=== PATIENT | female | born 1950 | race Caucasian/White ===

== ENCOUNTER 2021-10-15 15:32 | Observation (INO) | payer MEDICARE ==
[2021-10-15] MEDS ORDERED: RX INFO: IV CONTRAST WAS GIVEN 1 EACH MISC MISCELLANE PRN (16:02)
[2021-10-15] MEDS ORDERED: MORPHINE SULFATE 2 MG/ML SYRINGE IV STA (16:02)
[2021-10-15] MEDS ORDERED: SODIUM CHLORIDE 0.9% 1,000 ML IV ONE (16:02)
--- NOTE | 2021-10-15 16:22 | ED ---
General Adult HPI - General Chief complaint: Fall Stated complaint: Fall Time Seen by Provider: 10/15/21 15:48 Source: EMS, RN notes reviewed, old records reviewed Mode of arrival: EMS Limitations: altered mental status - History of Present Illness Initial comments: Patient is a 71-year-old female with past medical history remarkable for Parkinson's disease, dementia, hypertension, possible A. fib but not on anticoagulation, heart failure, diabetes, multiple falls who presents emergency Department following a fall that was unwitnessed at her care home. Patient presents from [facility] on [facility] following an unwitnessed fall. Is unknown how long she was down for. She is a poor historian. She denies any pain at this time. Per EMS, as well as per her nursing facility, she is at her current mental baseline. She is alert and oriented times one to 2. Seems generally confused. Denies any acute complaints at this time. History is unreliable at this time from the patient. Per EMS, vital signs are stable, and she is not complaining of any pain. According to records, she has no history of taking blood thinners currently. - Related Data Home Medications Medication Instructions Recorded Confirmed ALPRAZolam [Xanax] 0.25 mg PO BID PRN 10/15/21 10/15/21 ALPRAZolam [Xanax] 0.25 mg PO TID@0900,1300,209910/15/21 10/15/21 Acetaminophen [Tylenol] 650 mg PO Q4H PRN 10/15/21 10/15/21 Ascorbic Acid [Vitamin C] 500 mg PO DAILY@89910/15/21 10/15/21 Aspirin EC [Ecotrin Low Dose] 81 mg PO DAILY@89910/15/21 10/15/21 Atorvastatin Calcium [Lipitor] 20 mg PO HS@209910/15/21 10/15/21 Brimonidine Tartrate [Alphagan P 1 drop BOTH EYES BID@0900,209910/15/21 10/15/21 0.2% Ophth Soln] Carbidopa-Levodopa 25-100 mg 1 tab PO TID@0600,1400,2200 10/15/21 10/15/21 [Sinemet 25-100] Cholecalciferol [Vitamin D3 (25 50 mcg PO DAILY@0900 10/15/21 10/15/21 Mcg = 1000 Iu)] Escitalopram [Lexapro] 5 mg PO HS@209910/15/21 10/15/21 Lactose-Reduced Food [Ensure Plus] 1 can PO BID@0900,209910/15/21 10/15/21 Latanoprost/Pf [Latanoprost 0.005% 1 drop BOTH EYES HS@209910/15/21 10/15/21 Eye Drop] Linagliptin [Tradjenta] 5 mg PO DAILY@89910/15/21 10/15/21 Nitroglycerin Sl Tabs [Nitrostat] 0.4 mg SL Q5M PRN 10/15/21 10/15/21 Pantoprazole Sodium [Protonix] 40 mg PO BID@0600,209910/15/21 10/15/21 QUEtiapine [SEROquel] 25 mg PO HS@209910/15/21 10/15/21 Sacubitril/Valsartan [Entresto 24 1 tab PO BID@09,2099 PRN 10/15/21 10/15/21 mg-26 mg Tablet] Sotalol [Betapace] 80 mg PO BID@0900,209910/15/21 10/15/21 Zinc 50 mg PO DAILY@89910/15/21 10/15/21 Allergies Allergy/AdvReac Type Severity Reaction Status Date / Time No Known Allergies Allergy Verified 10/15/21 17:20 Review of Systems ROS Statement: Those systems with pertinent positive or pertinent negative responses have been documented in the HPI. Unable to obtain secondary to patient's current clinical status. ROS Other: All systems not noted in ROS Statement are negative. Past Medical History Past Medical History: No Reported History History of Any Multi-Drug Resistant Organisms: None Reported Past Surgical History: No Surgical Hx Reported Past Psychological History: No Psychological Hx Reported Smoking Status: Unknown if ever smoked Past Alcohol Use History: None Reported Past Drug Use History: None Reported General Exam - General Exam Comments Initial Comments: General: Appears in no acute distress. Patient does have tremors with a history of Parkinson's disease. HEAD: Normal with no signs of head trauma. No Step-offs or deformities. Negative piedra sign. Negative raccoon eyes. EYES: PERRLA, EOMI, conjunctiva normal, no discharge. Pupils 3 mm and equal bilaterally. ENT: Hearing grossly intact, normal oropharynx. RESPIRATORY: Clear breath sounds bilaterally. No wheezes, rales, or rhonchi. C/V: Regular rate and rhythm. S1 and S2 auscultated. Peripheral pulses are 2+ intact. Patient has approximately 1+ pitting edema to the bilateral ankles. ABD: Abd is soft, nondistended, nontender. EXT: Moving all 4 extremities. Mild midline cervical, thoracic, lumbar spine tenderness to palpation. Pelvis is stable. some tenderness over the lateral proximal femur on left. Mild tenderness over bilateral ribs on back. SKIN: Patient does have chronic venous sores over the bilateral lower extremities. NEURO: Alert and oriented times one to 2 which appears to be her baseline. Moving all 4 extremity is. Her neurological exam is difficult to complete secondary to her chronic dementia. No obvious deficits at this time. Limitations: altered mental status Course Vital Signs 10/15/21 10/15/21 15:45 18:09 Temperature 97.6 F Pulse Rate 83 Respiratory 20 18 Rate Blood Pressure 118/89 145/80 O2 Sat by Pulse 97 Oximetry Medical Decision Making - Medical Decision Making Based on the patient's presentation and physical exam, she patient had an unwitnessed fall, of unknown etiology. Uncertain if it was a syncopal episode. Patient is a poor historian and unable to provide more information regarding the event. She is complaining of nonspecific rib pain on exam, left femur pain, but overall is a poor historian. We will obtain CT imaging patient's chest and spine as well as brain and C-spine. We will obtain an x-ray of the left hip, left femur. She will receive a 1 L fluid bolus as well as IV morphine for pain. Broad laboratory study workup will be obtained to rule out the possibility of infection, as well as cardiopulmonary rule out. There was a delay in obtaining laboratory studies, as well as imaging as the patient became agitated secondary to her left hip pain. Attempts were made to obtain CT imaging of the brain immediately, however she would not hold still secondary to left hip pain. IV access was lost. Lab studies were then hemolyzed. Eventually a new IV was placed, and we were able to provide her with a dose of Ativan and Haldol which improved her agitation. Imaging will be obtained at this time. EKG was obtained and revealed an atrial paced rhythm with no obvious ischemic changes.Laboratory studies were remarkable for mild leukocytosis of 13. Magnesium was 1.3 which was replenished. CPK was mildly elevated to 269 patient is given a fluid bolus. Troponin is negative. Urinalysis is remarkable for UTI. Covid is negative. Patient's imaging revealed no acute fracture or subluxation of the pelvis, femur. Chest x-ray was unremarkable. CT imaging was unremarkable for acute injury. No acute intracranial process. No injuries from the fall were found on imaging. On reevaluation, patient is appearing anxious, however she is moving all 4 extremities without difficulty. Mental status is unchanged. She does not seem to have any tenderness to palpation over the left hip at this time or the back. Exam remains unremarkable at this time. I would like to admit her for her UTI. Pain over the posterior ribs and spine seem improved, at this time. I would like to admitted to the hospital for her UTI. I spoke with the admitting team, VALERY ALVARADO she was in agreement with this plan. Patient was admitted under Dr. Rutherford in stable condition. - Lab Data Result diagrams: 10/15/21 17:45 10/15/21 17:45 Lab Results 10/15/21 10/15/21 10/15/21 Range/Units 16:25 16:25 17:45 WBC 13.1 H (3.8-10.6) k/uL RBC 4.66 (3.80-5.40) m/uL Hgb 11.0 L (11.4-16.0) gm/dL Hct 36.3 (34.0-46.0) % MCV 77.8 L (80.0-100.0) fL MCH 23.5 L (25.0-35.0) pg MCHC 30.2 L (31.0-37.0) g/dL RDW 17.4 H (11.5-15.5) % Plt Count 364 (150-450) k/uL MPV 8.7 Neutrophils % 77 % Lymphocytes % 13 % Monocytes % 6 % Eosinophils % 2 % Basophils % 1 % Neutrophils # 10.1 H (1.3-7.7) k/uL Lymphocytes # 1.7 (1.0-4.8) k/uL Monocytes # 0.8 (0-1.0) k/uL Eosinophils # 0.2 (0-0.7) k/uL Basophils # 0.1 (0-0.2) k/uL Hypochromasia Marked Anisocytosis Slight Microcytosis Slight PT (9.0-12.0) sec INR (<1.2) APTT (22.0-30.0) sec Sodium (137-145) mmol/L Potassium (3.5-5.1) mmol/L Chloride (98-107) mmol/L Carbon Dioxide (22-30) mmol/L Anion Gap mmol/L BUN (7-17) mg/dL Creatinine (0.52-1.04) mg/dL Est GFR (CKD-EPI)AfAm (>60 ml/min/1.73 sqM) Est GFR (CKD-EPI)NonAf (>60 ml/min/1.73 sqM) Glucose (74-99) mg/dL Plasma Lactic Acid Tommie (0.7-2.0) mmol/L Calcium (8.4-10.2) mg/dL Magnesium (1.6-2.3) mg/dL Total Bilirubin (0.2-1.3) mg/dL AST (14-36) U/L ALT (4-34) U/L Alkaline Phosphatase (38-126) U/L Creatine Kinase (30-135) U/L Troponin I (0.000-0.034) ng/mL Total Protein (6.3-8.2) g/dL Albumin (3.5-5.0) g/dL Amylase (30-110) U/L Lipase (23-300) U/L Urine Color Yellow Urine Appearance Cloudy H (Clear) Urine pH 6.0 (5.0-8.0) Ur Specific [place] 1.025 (1.001-1.035) Urine Protein Trace H (Negative) Urine Glucose (UA) Negative (Negative) Urine Ketones Negative (Negative) Urine Blood Negative (Negative) Urine Nitrite Negative (Negative) Urine Bilirubin Negative (Negative) Urine Urobilinogen <2.0 (<2.0) mg/dL Ur Leukocyte Esterase Large H (Negative) Urine RBC 5 (0-5) /hpf Urine WBC 111 H (0-5) /hpf Urine WBC Clumps Few H (None) /hpf Ur Squamous Epith Cells 7 H (0-4) /hpf Urine Bacteria Few H (None) /hpf Urine Mucus Rare H (None) /hpf Urine Yeast (Budding) Occasional H (None) /hpf Coronavirus (PCR) Not Detected (Not Detectd) 10/15/21 10/15/21 10/15/21 Range/Units 17:45 17:45 17:45 WBC (3.8-10.6) k/uL RBC (3.80-5.40) m/uL Hgb (11.4-16.0) gm/dL Hct (34.0-46.0) % MCV (80.0-100.0) fL MCH (25.0-35.0) pg MCHC (31.0-37.0) g/dL RDW (11.5-15.5) % Plt Count (150-450) k/uL MPV Neutrophils % % Lymphocytes % % Monocytes % % Eosinophils % % Basophils % % Neutrophils # (1.3-7.7) k/uL Lymphocytes # (1.0-4.8) k/uL Monocytes # (0-1.0) k/uL Eosinophils # (0-0.7) k/uL Basophils # (0-0.2) k/uL Hypochromasia Anisocytosis Microcytosis PT (9.0-12.0) sec INR (<1.2) APTT (22.0-30.0) sec Sodium 141 (137-145) mmol/L Potassium 4.4 (3.5-5.1) mmol/L Chloride 110 H (98-107) mmol/L Carbon Dioxide 22 (22-30) mmol/L Anion Gap 9 mmol/L BUN 20 H (7-17) mg/dL Creatinine 0.96 (0.52-1.04) mg/dL Est GFR (CKD-EPI)AfAm 68 (>60 ml/min/1.73 sqM) Est GFR (CKD-EPI)NonAf 59 (>60 ml/min/1.73 sqM) Glucose 122 H (74-99) mg/dL Plasma Lactic Acid Tommie 1.3 (0.7-2.0) mmol/L Calcium 9.5 (8.4-10.2) mg/dL Magnesium 1.3 L (1.6-2.3) mg/dL Total Bilirubin 1.1 (0.2-1.3) mg/dL AST 33 (14-36) U/L ALT 18 (4-34) U/L Alkaline Phosphatase 71 (38-126) U/L Creatine Kinase 269 H (30-135) U/L Troponin I <0.012 (0.000-0.034) ng/mL Total Protein 6.2 L (6.3-8.2) g/dL Albumin 3.3 L (3.5-5.0) g/dL Amylase 55 (30-110) U/L Lipase 208 (23-300) U/L Urine Color Urine Appearance (Clear) Urine pH (5.0-8.0) Ur Specific [place] (1.001-1.035) Urine Protein (Negative) Urine Glucose (UA) (Negative) Urine Ketones (Negative) Urine Blood (Negative) Urine Nitrite (Negative) Urine Bilirubin (Negative) Urine Urobilinogen (<2.0) mg/dL Ur Leukocyte Esterase (Negative) Urine RBC (0-5) /hpf Urine WBC (0-5) /hpf Urine WBC Clumps (None) /hpf Ur Squamous Epith Cells (0-4) /hpf Urine Bacteria (None) /hpf Urine Mucus (None) /hpf Urine Yeast (Budding) (None) /hpf Coronavirus (PCR) (Not Detectd) 10/15/21 Range/Units 17:45 WBC (3.8-10.6) k/uL RBC (3.80-5.40) m/uL Hgb (11.4-16.0) gm/dL Hct (34.0-46.0) % MCV (80.0-100.0) fL MCH (25.0-35.0) pg MCHC (31.0-37.0) g/dL RDW (11.5-15.5) % Plt Count (150-450) k/uL MPV Neutrophils % % Lymphocytes % % Monocytes % % Eosinophils % % Basophils % % Neutrophils # (1.3-7.7) k/uL Lymphocytes # (1.0-4.8) k/uL Monocytes # (0-1.0) k/uL Eosinophils # (0-0.7) k/uL Basophils # (0-0.2) k/uL Hypochromasia Anisocytosis Microcytosis PT 10.7 (9.0-12.0) sec INR 1.0 (<1.2) APTT 21.5 L (22.0-30.0) sec Sodium (137-145) mmol/L Potassium (3.5-5.1) mmol/L Chloride (98-107) mmol/L Carbon Dioxide (22-30) mmol/L Anion Gap mmol/L BUN (7-17) mg/dL Creatinine (0.52-1.04) mg/dL Est GFR (CKD-EPI)AfAm (>60 ml/min/1.73 sqM) Est GFR (CKD-EPI)NonAf (>60 ml/min/1.73 sqM) Glucose (74-99) mg/dL Plasma Lactic Acid Tommie (0.7-2.0) mmol/L Calcium (8.4-10.2) mg/dL Magnesium (1.6-2.3) mg/dL Total Bilirubin (0.2-1.3) mg/dL AST (14-36) U/L ALT (4-34) U/L Alkaline Phosphatase (38-126) U/L Creatine Kinase (30-135) U/L Troponin I (0.000-0.034) ng/mL Total Protein (6.3-8.2) g/dL Albumin (3.5-5.0) g/dL Amylase (30-110) U/L Lipase (23-300) U/L Urine Color Urine Appearance (Clear) Urine pH (5.0-8.0) Ur Specific [place] (1.001-1.035) Urine Protein (Negative) Urine Glucose (UA) (Negative) Urine Ketones (Negative) Urine Blood (Negative) Urine Nitrite (Negative) Urine Bilirubin (Negative) Urine Urobilinogen (<2.0) mg/dL Ur Leukocyte Esterase (Negative) Urine RBC (0-5) /hpf Urine WBC (0-5) /hpf Urine WBC Clumps (None) /hpf Ur Squamous Epith Cells (0-4) /hpf Urine Bacteria (None) /hpf Urine Mucus (None) /hpf Urine Yeast (Budding) (None) /hpf Coronavirus (PCR) (Not Detectd) - EKG Data -: EKG Interpreted by Me EKG Comments: 12-lead Electrocardiogram Interpretation Note EKG was reviewed and interpreted by myself. 12-lead ECG performed at 1725 is interpreted by me as revealing atrial paced rhythm at a rate of 106 beats per minute. [place] is normal. [place] interval is 182 ms, QRS duration is 90 ms, QTc is 407 ms.. There were no ST or T wave abnormalities to suggest myocardial ischemia or injury. R wave progression across the precordium was satisfactory. By my interpretation this EKG is non-diagnostic for acute ischemia. Disposition Clinical Impression: Fall, UTI (urinary tract infection), Parkinsons, Dementia Disposition: ADMITTED IP TO THIS HOSP Condition: Stable Referrals: Nonstaff,Physician [REFERRING] - 1-2 days
[2021-10-15] MEDS ORDERED: LORazepam 2 MG/ML INJ IV STA (16:57)
[2021-10-15 17:56] LABS: Anisocytosis Slight; Basophils # (A) 0.1 k/uL (0-0.2); Basophils % (A) 1 %; Eosinophils # (A) 0.2 k/uL (0-0.7); Eosinophils % (A) 2 %; HCT 36.3 % (34.0-46.0); Hypochromasia Marked; Lymphocytes # (A) 1.7 k/uL (1.0-4.8); Lymphocytes % (A) 13 %; MCH 23.5 pg (25.0-35.0); MCHC 30.2 g/dL (31.0-37.0); MCV 77.8 fL (80.0-100.0); Mean Platelet Volume 8.7; Microcytosis Slight; Monocytes # (A) 0.8 k/uL (0-1.0); Monocytes % (A) 6 %; Neutrophils # (A) 10.1 k/uL (1.3-7.7); Neutrophils % (A) 77 %; Platelet Count 364 k/uL (150-450); RBC 4.66 m/uL (3.80-5.40); RDW 17.4 % (11.5-15.5); WBC 13.1 k/uL (3.8-10.6)
[2021-10-15] MEDS ORDERED: HALOPERIDOL LACTATE 5 MG/ML 1 ML VIAL IVP STA (17:59)
[2021-10-15 18:07] LABS: Albumin 3.3 g/dL (3.5-5.0); Calcium 9.5 mg/dL (8.4-10.2); Magnesium 1.3 mg/dL (1.6-2.3); Potassium 4.4 mmol/L (3.5-5.1); Total Bilirubin 1.1 mg/dL (0.2-1.3); Total Protein 6.2 g/dL (6.3-8.2)
[2021-10-15 18:11] LABS: Partial Thromboplastin Time 21.5 sec (22.0-30.0); Prothrombin Time 10.7 sec (9.0-12.0)
[2021-10-15] MEDS ORDERED: MAGNESIUM SULFATE-D5W PMX 1 GM in DEXTROSE/WATER 1 100ML.BAG IVPB ONE (18:30)
[2021-10-15 18:36] LABS: Appearance,Urine Cloudy (Clear); Bacteria,Urine Few /hpf; Bilirubin,Urine Negative (Negative); Blood,Urine Negative (Negative); Budding Yeast,Urine Occasional /hpf; Color,Urine Yellow; Glucose,Urine (UA) Negative (Negative); Ketones,Urine Negative (Negative); Leukocyte Esterase,Urine Large (Negative); Mucus,Urine Rare /hpf; Nitrite,Urine Negative (Negative); Protein,Urine Trace (Negative); RBC,Urine 5 /hpf (0-5); Specific Gravity,Urine 1.025 (1.001-1.035); Squamous Epithelial Cell,Urine 7 /hpf (0-4); Urobilinogen,Urine <2.0 mg/dL (<2.0); WBC,Urine 111 /hpf (0-5)
--- NOTE | 2021-10-15 19:07 | XR ---
EXAMINATION TYPE: XR femur LT DATE OF EXAM: 10/15/2021 COMPARISON: NONE HISTORY: Fall. Pain TECHNIQUE: 4 views FINDINGS: I see no fracture nor dislocation. Joint spaces are fairly normal. Hip joint and knee joint appear intact. There is small knee joint effusion. IMPRESSION: No acute abnormality of the left femur. Small knee joint effusion. No fracture.
[2021-10-15] MEDS ORDERED: cefTRIAXone IN SWFI 1,000 MG/10 ML SYRINGE IVP STA (19:08)
--- NOTE | 2021-10-15 19:08 | XR ---
EXAMINATION TYPE: XR pelvis AP view DATE OF EXAM: 10/15/2021 COMPARISON: NONE HISTORY: Fall. Pain TECHNIQUE: Single view FINDINGS: Pelvic ring is intact. Proximal femurs are intact. Sacroiliac joints are intact. There is n o evidence of a fracture. IMPRESSION: No acute abnormality of the pelvis.
--- NOTE | 2021-10-15 19:10 | XR ---
EXAMINATION TYPE: XR chest 1V portable DATE OF EXAM: 10/15/2021 COMPARISON: NONE HISTORY: Fall. Pain TECHNIQUE: Single view FINDINGS: There is no heart failure nor confluent pneumonic infiltrate. Costophrenic angles are clear . There is left axillary pacemaker. There is no pleural effusion. IMPRESSION: No active cardiopulmonary disease. Normal heart.
--- NOTE | 2021-10-15 19:49 | CT ---
EXAMINATION TYPE: CT chest w con DATE OF EXAM: 10/15/2021 COMPARISON: None HISTORY: ams Chest pain CT DLP: 414.9 mGycm Automated exposure control for dose reduction was used. CONTRAST: Performed with IV Contrast, patient injected with 100 mL of Isovue 300. Images obtained from the thoracic inlet to the diaphragm without IV contrast. The lungs are clear of consolidation. There is no pleural effusion or pneumothorax. There is minimal subsegmental atelectasis at the lung bases. Heart size is fairly normal. There is no pericardial effu yen. There is atherosclerotic vascular calcification. There is left axillary pacemaker. Thoracic aor ta is intact. There is no aneurysm or dissection. The ascending aorta measures 3.3 cm. There is no me diastinal adenopathy. There are no hilar masses. The thoracic spine is intact. There is no compression fracture. Sternum is intact. Exam limited by mo tion. There is no evidence of displaced rib fracture. The shoulder joints appear intact. IMPRESSION: No evidence of acute traumatic injury of the chest. Exam limited by motion artifact.
--- NOTE | 2021-10-15 19:53 | CT ---
EXAMINATION TYPE: CT brain cspine wo con DATE OF EXAM: 10/15/2021 COMPARISON: None HISTORY: ams CT DLP: 1432.9 mGycm Automated exposure control for dose reduction was used. Images of the brain and cervical spine obtained without contrast. There is cerebral cortical atrophy. There is no mass effect or midline shift. There is no sign of int racranial hemorrhage. The calvarium is intact. Skull base is intact. There is normal aeration of the mastoid sinuses. The cervical vertebra are fairly normal alignment. There is no compression fracture. There is mild mu ltilevel cervical facet arthropathy. There is no subluxation. Exam limited slightly by motion. IMPRESSION: Cerebral atrophy. No acute intracranial abnormality. Mild degenerative changes in the cervical spine. No fracture.
--- NOTE | 2021-10-15 20:00 | CT ---
EXAMINATION TYPE: CT thor lumbar spine w con DATE OF EXAM: 10/15/2021 COMPARISON: None HISTORY: ams, possible fall CT DLP: 414.9 mGycm Automated exposure control for dose reduction was used. CONTRAST: Performed with IV Contrast, patient injected with 100 mL of Isovue 300. Images obtained from the level of T1-S1 vertebra without contrast. Vertebra have fairly normal alignment. Exam limited slightly by motion. There is no compression fract ure. Posterior elements are intact. There is no thoracic or lumbar paraspinal mass. I see no focal bruno ne destruction. The sacroiliac joints are intact. IMPRESSION: No acute abnormality of the thoracic and lumbar spine. No fracture seen.
[2021-10-15] MEDS ORDERED: NALOXONE 0.4 MG/ML 1 ML VIAL IV PRN (20:09)
[2021-10-15] MEDS ORDERED: MORPHINE SULFATE 4 MG/ML SYRINGE IV PRN (20:09)
[2021-10-15] MEDS ORDERED: SODIUM CHLORIDE 0.9% 1,000 ML IV STA (20:22)
[2021-10-15] MEDS ORDERED: ALPRAZolam 0.25 MG TAB PO PRN (20:35)
[2021-10-15] MEDS ORDERED: SACUBITRIL/VALSARTAN 24 MG-26 MG TABLET PO PRN (21:00)
[2021-10-15] MEDS: CARBIDOPA-LEVODOPA 25-100 MG 1 EACH TAB PO SCH (21:43)
[2021-10-15] MEDS: ALPRAZolam 0.25 MG TAB PO SCH (21:43)
[2021-10-15] MEDS: PANTOPRAZOLE 40 MG TABLET PO SCH (21:44)
[2021-10-15] MEDS: SOTALOL 80 MG TAB PO SCH (21:44)
[2021-10-15] MEDS: ESCITALOPRAM 5 MG TAB PO SCH (21:44)
[2021-10-15] MEDS: QUEtiapine 25 MG TAB PO SCH (21:44)
[2021-10-15] MEDS: LATANOPROST 0.005% OPHTH DROPS 2.5 ML BTL BOTH EYES SCH (21:44)
[2021-10-15] MEDS: BRIMONIDINE TARTRATE 0.2% DROPS 5 ML BTL BOTH EYES SCH (21:44)
[2021-10-16] MEDS: PANTOPRAZOLE 40 MG TABLET PO SCH ×2 (07:40→20:58)
[2021-10-16] MEDS: CARBIDOPA-LEVODOPA 25-100 MG 1 EACH TAB PO SCH ×3 (07:40→20:58)
[2021-10-16 08:17] LABS: Anisocytosis Slight; Basophils % (A) 0 %; Eosinophils # (A) 0.1 k/uL (0-0.7); Eosinophils % (A) 1 %; HCT 33.3 % (34.0-46.0); Hypochromasia Marked; Lymphocytes # (A) 1.9 k/uL (1.0-4.8); Lymphocytes % (A) 19 %; MCH 23.1 pg (25.0-35.0); Mean Platelet Volume 9.7; Microcytosis Slight; Monocytes % (A) 10 %; Neutrophils # (A) 6.9 k/uL (1.3-7.7); Neutrophils % (A) 68 %; Platelet Count 353 k/uL (150-450); RBC 4.33 m/uL (3.80-5.40); RDW 17.3 % (11.5-15.5); WBC 10.2 k/uL (3.8-10.6)
[2021-10-16 08:19] LABS: African American GFR (CKD) 67 (>60 ml/min/1.73 sqM); Anion Gap 6 mmol/L; Blood Urea Nitrogen 16 mg/dL (7-17); Calcium 9.2 mg/dL (8.4-10.2); Carbon Dioxide 23 mmol/L (22-30); Chloride 111 mmol/L (98-107); Glucose 129 mg/dL (74-99); Non-African American GFR(CKD) 58 (>60 ml/min/1.73 sqM); Potassium 4.2 mmol/L (3.5-5.1); Sodium 140 mmol/L (137-145)
[2021-10-16] MEDS: ACETAMINOPHEN TAB 325 MG TAB PO PRN (09:23)
[2021-10-16] MEDS: ALPRAZolam 0.25 MG TAB PO SCH ×4 (09:24→20:59)
[2021-10-16] MEDS: SOTALOL 80 MG TAB PO SCH ×2 (09:25→21:19)
[2021-10-16] MEDS: BRIMONIDINE TARTRATE 0.2% DROPS 5 ML BTL BOTH EYES SCH ×2 (12:11→20:58)
[2021-10-16] MEDS: LINAGLIPTIN 5 MG TABLET PO SCH (12:11)
[2021-10-16] MEDS: HEPARIN SODIUM,PORCINE/PF 5,000 UNIT/0.5 ML SYRINGE SQ SCH ×2 (14:32→20:58)
--- NOTE | 2021-10-16 14:42 | HP ---
HISTORY AND PHYSICAL DATE OF SERVICE: 10/16/2021 CHIEF COMPLAINT: Fall and change in mental status. HISTORY OF PRESENT ILLNESS: This 71-year-old woman with a past medical history of CHF and dementia, being followed Dr. Oseguera in the outpatient setting, was admitted with weakness and falls. The patient was confused also. The patient had multiple medical issues also. Currently patient is sedated, unable to give a coherent history. Most of the history is taken from my discussion with staff. PAST MEDICAL HISTORY: Per chart, reviewed. It includes dementia, atrial fibrillation, CHF. MEDICATIONS PRIOR TO ADMISSION: Reviewed. They include latanoprost, Lipitor, Ecotrin. Doses and other medications are reviewed. ALLERGIES: NONE. Family history, social history, review of systems could not be taken . PHYSICAL EXAMINATION: Pulse is 83, blood pressure 110/53, respiration 17. The patient is sedated. HEENT: Conjunctivae . Oral mucosa moist. NECK: No jugular venous distention. CARDIOVASCULAR: S1, S2 muffled. RESPIRATION: Breath sounds diminished at the bases. A few scattered rhonchi. ABDOMEN: Soft, nontender. Nervous system could not be examined. SKIN: No ulcer, rash, bleeding. JOINTS: No active deforming arthropathy. NECK is no JVD. LABS: WBC .2, hemoglobin is 10, sodium 140. UA noted; possible UTI. ASSESSMENT: 1. Acute urinary tract infection, present on admission. 2. Fall and weakness. 3. Dementia. 4. Atrial fibrillation. 5. History of congestive heart failure. RECOMMENDATIONS AND DISCUSSION: In this 71-year-old woman who presented with multiple complex medical issues, we will monitor the patient closely. Will initiate broad-spectrum IV antibiotics, obtain cultures. Resume the home medications. Prognosis guarded because of multiple complex medical issues. Further recommendations to follow. MMODL / IJN: [id number] / [email or web address]
[2021-10-16] MEDS: ATORVASTATIN 20 MG TAB PO SCH (20:58)
[2021-10-16] MEDS: QUEtiapine 25 MG TAB PO SCH (20:58)
[2021-10-16] MEDS: LATANOPROST 0.005% OPHTH DROPS 2.5 ML BTL BOTH EYES SCH (20:59)
[2021-10-16] MEDS: ESCITALOPRAM 5 MG TAB PO SCH (21:19)
[2021-10-17] MEDS: CARBIDOPA-LEVODOPA 25-100 MG 1 EACH TAB PO SCH ×3 (06:03→21:52)
[2021-10-17] MEDS: PANTOPRAZOLE 40 MG TABLET PO SCH ×2 (06:03→21:55)
[2021-10-17 09:42] LABS: African American GFR (CKD) 64.7 (60.0-200.0); Albumin 3.5 g/dL (3.8-4.9); Albumin/Globulin Ratio 1.46 (1.60-3.17); Anion Gap 13.5 mmol/L (10.00-18.00); BUN/Creat Ratio 12.1 Ratio (12.00-20.00); Blood Urea Nitrogen 12.1 mg/dL (9.0-27.0); Calcium 9.4 mg/dL (8.7-10.3); Carbon Dioxide 22.5 mmol/L (20.0-27.5); Globulin 2.4 g/dL (1.6-3.3); Non-African American GFR(CKD) 55.8 (60.0-200.0); Potassium 3.8 mmol/L (3.5-5.5); Total Bilirubin 0.9 mg/dL (0.30-1.20); Total Protein 5.9 g/dL (6.2-8.2)
[2021-10-17] MEDS: SODIUM CHLORIDE 0.9% 1,000 ML IV SCH ×2 (11:01→23:59)
[2021-10-17] MEDS: BRIMONIDINE TARTRATE 0.2% DROPS 5 ML BTL BOTH EYES SCH ×2 (11:02→21:58)
[2021-10-17] MEDS: HEPARIN SODIUM,PORCINE/PF 5,000 UNIT/0.5 ML SYRINGE SQ SCH ×2 (11:02→21:53)
[2021-10-17] MEDS: ALPRAZolam 0.25 MG TAB PO SCH ×3 (11:05→21:55)
[2021-10-17] MEDS: CHOLECALCIFEROL 25 MCG (1000 IU) TABLET PO SCH (11:46)
[2021-10-17] MEDS: LINAGLIPTIN 5 MG TABLET PO SCH (11:46)
[2021-10-17] MEDS: ASPIRIN 81 MG PO SCH (11:47)
[2021-10-17] MEDS: ZINC SULFATE 220 MG CAP PO SCH (11:47)
[2021-10-17] MEDS: SOTALOL 80 MG TAB PO SCH ×2 (11:47→21:52)
--- NOTE | 2021-10-17 13:03 | PN ---
PROGRESS NOTE DATE OF SERVICE: 10/17/2021 This 71-year-old woman who was admitted with a fall and change in mental status also had acute UTI. Cultures are negative so far. The patient continues to be confused. PHYSICAL EXAMINATION: Pulse 82, blood pressure 142/70, respiration 16. CHEST: Clear to auscultation. A few rhonchi. CARDIOVASCULAR: S1, S2 muffled. ABDOMEN: Soft, nontender. NERVOUS SYSTEM: Diffusely weak. LABS: Reviewed. Glucose is 124. Cultures are negative so far. ASSESSMENT: 1. Acute urinary tract infection, present on admission. 2. Fall and weakness. 3. Dementia. 4. Atrial fibrillation. 5. History of congestive heart failure. RECOMMENDATIONS AND DISCUSSION: I recommend to continue current medications, continue with the monitoring, symptomatic treatment. Continue with empiric antibiotics. PT/OT evaluation, possible ECF rehab. Prognosis is guarded. MMODL / IJN: [id number] /
[2021-10-17] MEDS: ESCITALOPRAM 5 MG TAB PO SCH (21:52)
[2021-10-17] MEDS: QUEtiapine 25 MG TAB PO SCH (21:55)
[2021-10-17] MEDS: ATORVASTATIN 20 MG TAB PO SCH (21:55)
[2021-10-17] MEDS: LATANOPROST 0.005% OPHTH DROPS 2.5 ML BTL BOTH EYES SCH (21:58)
[2021-10-18] MEDS: CARBIDOPA-LEVODOPA 25-100 MG 1 EACH TAB PO SCH ×3 (08:35→20:52)
[2021-10-18] MEDS: PANTOPRAZOLE 40 MG TABLET PO SCH ×2 (08:35→20:52)
[2021-10-18] MEDS: CHOLECALCIFEROL 25 MCG (1000 IU) TABLET PO SCH (08:36)
[2021-10-18] MEDS: ALPRAZolam 0.25 MG TAB PO SCH ×3 (08:36→20:52)
[2021-10-18] MEDS: ZINC SULFATE 220 MG CAP PO SCH (08:36)
[2021-10-18] MEDS: ASPIRIN 81 MG PO SCH (08:36)
[2021-10-18] MEDS: BRIMONIDINE TARTRATE 0.2% DROPS 5 ML BTL BOTH EYES SCH ×2 (08:44→20:52)
[2021-10-18] MEDS: SOTALOL 80 MG TAB PO SCH ×2 (08:45→20:51)
[2021-10-18] MEDS: LINAGLIPTIN 5 MG TABLET PO SCH (08:45)
[2021-10-18] MEDS: HEPARIN SODIUM,PORCINE/PF 5,000 UNIT/0.5 ML SYRINGE SQ SCH ×2 (08:45→20:51)
[2021-10-18] MEDS: SODIUM CHLORIDE 0.9% 1,000 ML IV SCH (14:18)
[2021-10-18] MEDS: ESCITALOPRAM 5 MG TAB PO SCH (20:51)
[2021-10-18] MEDS: ATORVASTATIN 20 MG TAB PO SCH (20:52)
[2021-10-18] MEDS: QUEtiapine 25 MG TAB PO SCH (20:52)
[2021-10-18] MEDS: LATANOPROST 0.005% OPHTH DROPS 2.5 ML BTL BOTH EYES SCH (20:53)
--- NOTE | 2021-10-19 00:16 | P.PN ---
Subjective Progress Note Date: 10/18/21 10/18/2021 This is a 71 year old female who was admitted with a fall and change in mental status and is being closely monitored. Patient also had acute urinary infection and maintained on IV antibiotics and will continue. Patient has her 2 sons at the bedside and questions and concerns were answered to the best of our ability. Social work also following and awaiting accepting facilities in the [place] and surrounding areas for ECF. Patient denies any chest pain or shortness of breath. Afebrile. Encouraged oral intake. Review of systems: Unable to obtain as patient is confused All medications have been reviewed Active Medications Acetaminophen (Acetaminophen Tab 325 Mg Tab) 650 mg PO Q4H PRN PRN Reason: Mild Pain Last Admin: 10/16/21 09:23 Dose: 650 mg Documented by: Alprazolam (Alprazolam 0.25 Mg Tab) 0.25 mg PO BID PRN PRN Reason: Anxiety Alprazolam (Alprazolam 0.25 Mg Tab) 0.25 mg PO TID@0900,1300,2100 [facility] Last Admin: 10/18/21 20:52 Dose: 0.25 mg Documented by: Aspirin (Aspirin 81 Mg) 81 mg PO DAILY@0900 [facility] Last Admin: 10/18/21 08:36 Dose: 81 mg Documented by: Atorvastatin Calcium (Atorvastatin 20 Mg Tab) 20 mg PO HS@2100 [facility] Last Admin: 10/18/21 20:52 Dose: 20 mg Documented by: Brimonidine Tartrate (Brimonidine Tartrate 0.2% Drops 5 Ml Btl) 1 drops BOTH EYES BID@0900,2100 [facility] Last Admin: 10/18/21 20:52 Dose: 1 drops Documented by: Carbidopa/Levodopa (Carbidopa-Levodopa 25-100 Mg 1 Each Tab) 1 each PO TID@0600,1400,2200 [facility] Last Admin: 10/18/21 20:52 Dose: 1 each Documented by: Cholecalciferol (Cholecalciferol 25 Mcg (1000 Iu) Tablet) 50 mcg PO DAILY@0900 [facility] Last Admin: 10/18/21 08:36 Dose: 50 mcg Documented by: Escitalopram Oxalate (Escitalopram 5 Mg Tab) 5 mg PO HS@2100 [facility] Last Admin: 10/18/21 20:51 Dose: 5 mg Documented by: Heparin Sodium (Porcine) (Heparin Sodium,Porcine/Pf 5,000 Unit/0.5 Ml Syringe) 5,000 unit SQ Q12HR [facility] Last Admin: 10/18/21 20:51 Dose: 5,000 unit Documented by: Ceftriaxone Sodium 1 gm/ (Sodium Chloride) 50 mls @ 100 mls/hr IVPB Q24HR [facility] Last Admin: 10/18/21 08:37 Dose: 100 mls/hr Documented by: Sodium Chloride (Saline 0.9%) 1,000 mls @ 75 mls/hr IV .[id number] [facility] Last Admin: 10/18/21 14:18 Dose: 75 mls/hr Documented by: Latanoprost (Latanoprost 0.005% Ophth Drops 2.5 Ml Btl) 1 drops BOTH EYES HS@2100 [facility] Last Admin: 10/18/21 20:53 Dose: Not Given Documented by: Linagliptin (Linagliptin 5 Mg Tablet) 5 mg PO DAILY@0900 [facility] Last Admin: 10/18/21 08:45 Dose: 5 mg Documented by: Morphine Sulfate (Morphine Sulfate 4 Mg/Ml Syringe) 4 mg IV Q4HR PRN PRN Reason: Severe Pain Naloxone HCl (Naloxone 0.4 Mg/Ml 1 Ml Vial) 0.2 mg IV Q2M PRN PRN Reason: Opioid Reversal Pantoprazole Sodium (Pantoprazole 40 Mg Tablet) 40 mg PO BID@0600,2100 [facility] Last Admin: 10/18/21 20:52 Dose: 40 mg Documented by: Quetiapine Fumarate (Quetiapine 25 Mg Tab) 25 mg PO HS@2100 [facility] Last Admin: 10/18/21 20:52 Dose: 25 mg Documented by: Sacubitril/Valsartan (Sacubitril/Valsartan 24 Mg-26 Mg Tablet) 1 each PO BID@0900,2100 PRN PRN Reason: HOLD IF SBP IS LESS THAN 110 Sotalol HCl (Sotalol 80 Mg Tab) 80 mg PO BID@0900,2100 [facility] Last Admin: 10/18/21 20:51 Dose: 80 mg Documented by: Zinc Sulfate (Zinc Sulfate 220 Mg Cap) 220 mg PO DAILY@0900 [facility] Last Admin: 10/18/21 08:36 Dose: 220 mg Documented by: PHYSICAL EXAMINATION: GENERAL: The patient is alert and oriented x 1, thin built, cachetic, ill appearing HEENT: Pupils are round and equally reacting to light. EOMI. does have scleral icterus. No conjunctival pallor. Normocephalic, atraumatic. No pharyngeal erythema. No thyromegaly. CARDIOVASCULAR: S1 and S2 muffled PULMONARY: diminished breath sounds bilaterally with some scattered rhonchi noted. ABDOMEN: soft. non-tender. Non-distended, normoactive bowel sounds. No palpable organomegaly. MUSCULOSKELETAL: No joint swelling or deformity. EXTREMITIES: No cyanosis, clubbing, or pedal edema. NEUROLOGICAL: tremens noted on exam. Patient awake on exam although fatigues easily. Confused. diffusely weak SKIN: No rashes. Assessment: Acute urinary tract infection, present on admission Fall and weakness Dementia Atrial fibrillation History of congestive heart failure Full code Plan: Recommend to continue with IV ceftriaxone for urinary tract infection. Cultures and blood cultures have been negative. Patient continues to be confused and is lethargic. Sons at the bedside and discussed with social work about ECF and awaiting accepting facility. They are from the [facility] and would like somewhere around there if possible. Will continue to monitor closely and encouraged oral intake. Due to multiple complex medical issues, prognosis is guarded. The impression and plan of care has been dictated by Celeste Szymanski, nurse practitioner as directed. MD Jose R I have performed a history and examination and MDM of this patient, discussed the same with the dictator, and agree with the dictator's assessment and plan as written ,documented as a scribe. Based on total visit time, I have performed more than 50% of the visit. Any additional findings or plans will be noted. Objective - Vital Signs Vital signs: Vital Signs Temp 98.3 F 10/18/21 20:23 Pulse 82 10/18/21 20:23 Resp 18 10/18/21 20:23 BP 169/80 10/18/21 20:23 Pulse Ox 94 L 10/18/21 20:23 Intake & Output 10/18/21 10/18/21 10/19/21 06:59 18:59 06:59 Intake Total 900 50 Balance 900 50 Intake: Intake, IV Titration 900 50 Amount Sodium Chloride 0.9% 1, 900 000 ml @ 75 mls/hr IV . [id number] [facility] Rx#:[id number] cefTRIAXone 1 gm In 50 Sodium Chloride 0.9% 50 ml @ 100 mls/hr IVPB Q24HR [facility] Rx#:[id number] Other: Voiding Method Diaper Diaper Diaper Incontinent Incontinent Incontinent # Voids 3 4 # Bowel Movements 2 - Labs CBC & Chem 7: 10/16/21 06:43 10/17/21 06:44 Labs: Microbiology - Last 24 Hours (Table) 10/15/21 16:25 Blood Culture - Preliminary Blood No Growth after 72 hours 10/15/21 16:25 Blood Culture - Preliminary Blood No Growth after 72 hours
[2021-10-19] MEDS: SODIUM CHLORIDE 0.9% 1,000 ML IV SCH (04:18)
[2021-10-19] MEDS: CARBIDOPA-LEVODOPA 25-100 MG 1 EACH TAB PO SCH ×3 (05:32→21:55)
[2021-10-19] MEDS: PANTOPRAZOLE 40 MG TABLET PO SCH ×2 (05:32→21:55)
[2021-10-19] MEDS: ALPRAZolam 0.25 MG TAB PO SCH ×2 (08:17→14:30)
[2021-10-19] MEDS: CHOLECALCIFEROL 25 MCG (1000 IU) TABLET PO SCH (08:19)
[2021-10-19] MEDS: HEPARIN SODIUM,PORCINE/PF 5,000 UNIT/0.5 ML SYRINGE SQ SCH ×2 (08:21→21:49)
[2021-10-19] MEDS: ASPIRIN 81 MG PO SCH (08:21)
[2021-10-19] MEDS: ZINC SULFATE 220 MG CAP PO SCH (08:21)
[2021-10-19] MEDS: BRIMONIDINE TARTRATE 0.2% DROPS 5 ML BTL BOTH EYES SCH ×2 (08:23→21:58)
[2021-10-19] MEDS: LINAGLIPTIN 5 MG TABLET PO SCH (08:33)
[2021-10-19] MEDS: SOTALOL 80 MG TAB PO SCH ×2 (08:33→21:55)
--- NOTE | 2021-10-19 10:31 | XR ---
EXAMINATION TYPE: XR chest 1V portable DATE OF EXAM: 10/19/2021 COMPARISON: NONE HISTORY: Shortness of breath FINDINGS: There are bilateral pleural effusions with cardiomegaly and bibasilar infiltrate. There is a diffuse interstitial pattern. Cardiac device noted. IMPRESSION: 1. Correlate for CHF otherwise consider diffuse pneumonia.
[2021-10-19] MEDS: ACETAMINOPHEN TAB 325 MG TAB PO PRN (19:54)
[2021-10-19] MEDS: ESCITALOPRAM 5 MG TAB PO SCH (21:55)
[2021-10-19] MEDS: QUEtiapine 25 MG TAB PO SCH (21:55)
[2021-10-19] MEDS: ATORVASTATIN 20 MG TAB PO SCH (21:55)
[2021-10-19] MEDS: LATANOPROST 0.005% OPHTH DROPS 2.5 ML BTL BOTH EYES SCH (22:03)
[2021-10-20] MEDS ORDERED: FUROSEMIDE 10 MG/ML 4 ML VIAL IV STA (01:18)
[2021-10-20] MEDS: ALPRAZolam 0.25 MG TAB PO SCH ×3 (01:37→12:51)
--- NOTE | 2021-10-20 01:39 | P.PN ---
Subjective Progress Note Date: 10/19/21 10/18/2021 This is a 71 year old female who was admitted with a fall and change in mental status and is being closely monitored. Patient also had acute urinary infection and maintained on IV antibiotics and will continue. Patient has her 2 sons at the bedside and questions and concerns were answered to the best of our ability. Social work also following and awaiting accepting facilities in the [place] and surrounding areas for ECF. Patient denies any chest pain or shortness of breath. Afebrile. Encouraged oral intake. 10/19/2021 Patient is seen today and continues to be confused and lethargic. Patient continues on IV ceftriaxone and will continue for UTI. cultures have been negative however having some low grade temps. Will repeat am labs. Chest xray ordered as patient has been maintained on normal saline. Plan is for return to [facility] Friday until a facility can accommodate that is closer to [place] by family. Social work following. Review of systems: Unable to obtain as patient is confused All medications have been reviewed Active Medications Acetaminophen (Acetaminophen Tab 325 Mg Tab) 650 mg PO Q4H PRN PRN Reason: Mild Pain Last Admin: 10/19/21 19:54 Dose: 650 mg Documented by: Alprazolam (Alprazolam 0.25 Mg Tab) 0.25 mg PO BID PRN PRN Reason: Anxiety Alprazolam (Alprazolam 0.25 Mg Tab) 0.25 mg PO TID@0900,1300,2100 [facility] Last Admin: 10/19/21 14:30 Dose: Not Given Documented by: Aspirin (Aspirin 81 Mg) 81 mg PO DAILY@0900 [facility] Last Admin: 10/19/21 08:21 Dose: 81 mg Documented by: Atorvastatin Calcium (Atorvastatin 20 Mg Tab) 20 mg PO HS@2100 [facility] Last Admin: 10/19/21 21:55 Dose: 20 mg Documented by: Brimonidine Tartrate (Brimonidine Tartrate 0.2% Drops 5 Ml Btl) 1 drops BOTH EYES BID@0900,2100 [facility] Last Admin: 10/19/21 21:58 Dose: 1 drops Documented by: Carbidopa/Levodopa (Carbidopa-Levodopa 25-100 Mg 1 Each Tab) 1 each PO TID@0600,1400,2200 [facility] Last Admin: 10/19/21 21:55 Dose: 1 each Documented by: Cholecalciferol (Cholecalciferol 25 Mcg (1000 Iu) Tablet) 50 mcg PO DAILY@0900 [facility] Last Admin: 10/19/21 08:19 Dose: 50 mcg Documented by: Escitalopram Oxalate (Escitalopram 5 Mg Tab) 5 mg PO HS@2099 [facility] Last Admin: 10/19/21 21:55 Dose: 5 mg Documented by: Heparin Sodium (Porcine) (Heparin Sodium,Porcine/Pf 5,000 Unit/0.5 Ml Syringe) 5,000 unit SQ Q12HR [facility] Last Admin: 10/19/21 21:49 Dose: 5,000 unit Documented by: Ceftriaxone Sodium 1 gm/ (Sodium Chloride) 50 mls @ 100 mls/hr IVPB Q24HR [facility] Last Admin: 10/19/21 08:20 Dose: 100 mls/hr Documented by: Latanoprost (Latanoprost 0.005% Ophth Drops 2.5 Ml Btl) 1 drops BOTH EYES HS@2099 [facility] Last Admin: 10/19/21 22:03 Dose: 1 drops Documented by: Linagliptin (Linagliptin 5 Mg Tablet) 5 mg PO DAILY@09 [facility] Last Admin: 10/19/21 08:33 Dose: 5 mg Documented by: Morphine Sulfate (Morphine Sulfate 4 Mg/Ml Syringe) 4 mg IV Q4HR PRN PRN Reason: Severe Pain Naloxone HCl (Naloxone 0.4 Mg/Ml 1 Ml Vial) 0.2 mg IV Q2M PRN PRN Reason: Opioid Reversal Pantoprazole Sodium (Pantoprazole 40 Mg Tablet) 40 mg PO BID@0600,2100 [facility] Last Admin: 10/19/21 21:55 Dose: 40 mg Documented by: Quetiapine Fumarate (Quetiapine 25 Mg Tab) 25 mg PO HS@2099 [facility] Last Admin: 10/19/21 21:55 Dose: 25 mg Documented by: Sacubitril/Valsartan (Sacubitril/Valsartan 24 Mg-26 Mg Tablet) 1 each PO BID@0900,2100 PRN PRN Reason: HOLD IF SBP IS LESS THAN 110 Sotalol HCl (Sotalol 80 Mg Tab) 80 mg PO BID@0900,2100 [facility] Last Admin: 10/19/21 21:55 Dose: 80 mg Documented by: Zinc Sulfate (Zinc Sulfate 220 Mg Cap) 220 mg PO DAILY@0900 [facility] Last Admin: 10/19/21 08:21 Dose: 220 mg Documented by: PHYSICAL EXAMINATION: GENERAL: The patient is alert and oriented x 1, thin built, cachetic, ill appearing HEENT: Pupils are round and equally reacting to light. EOMI. does have scleral icterus. No conjunctival pallor. Normocephalic, atraumatic. No pharyngeal erythema. No thyromegaly. CARDIOVASCULAR: S1 and S2 muffled PULMONARY: diminished breath sounds bilaterally with some scattered rhonchi noted. ABDOMEN: soft. non-tender. Non-distended, normoactive bowel sounds. No palpable organomegaly. MUSCULOSKELETAL: No joint swelling or deformity. EXTREMITIES: No cyanosis, clubbing, or pedal edema. NEUROLOGICAL: tremens noted on exam. Patient awake on exam although fatigues easily. Confused. diffusely weak SKIN: No rashes. Assessment: Acute urinary tract infection, present on admission Fall and weakness Dementia Atrial fibrillation History of congestive heart failure Full code Plan: Recommend to continue with IV ceftriaxone for urinary tract infection. Cultures and blood cultures have been negative. Patient has been maintained on gentle IV hydration and ordered chest xray which shows some possible CHF and will give a dose of lasix and repeat am labs as patient was also having some low grade temps. Patient continues to be confused and is lethargic. social work following for ECF and awaiting accepting facility. Most likely will return to [facility] Friday at the earliest and work on a facility that is closer to family. They are from the [facility] and would like somewhere around there if possible. Will continue to monitor closely and encouraged oral intake. Due to multiple complex medical issues, prognosis is guarded. The impression and plan of care has been dictated by Celeste Szymanski, nurse practitioner as directed. MD Jose R I have performed a history and examination and MDM of this patient, discussed the same with the dictator, and agree with the dictator's assessment and plan as written ,documented as a scribe. Based on total visit time, I have performed more than 50% of the visit. Any additional findings or plans will be noted. Objective - Vital Signs Vital signs: Vital Signs Temp 99.1 F 10/19/21 04:15 Pulse 79 10/19/21 04:15 Resp 20 10/19/21 04:15 BP 117/66 02/18/22 04:15 Pulse Ox 91 L 10/19/21 04:15 Intake & Output 10/18/21 10/19/21 10/19/21 18:59 06:59 18:59 Intake Total 50 Balance 50 Intake: Intake, IV Titration 50 Amount cefTRIAXone 1 gm In 50 Sodium Chloride 0.9% 50 ml @ 100 mls/hr IVPB Q24HR [facility] Rx#:[id number] Other: Voiding Method Diaper Diaper Incontinent Incontinent # Voids 4 # Bowel Movements 2 - Labs CBC & Chem 7: 10/16/21 06:43 10/17/21 06:44 Labs: Microbiology - Last 24 Hours (Table) 10/15/21 16:25 Blood Culture - Preliminary Blood No Growth after 72 hours 10/15/21 16:25 Blood Culture - Preliminary Blood No Growth after 72 hours
[2021-10-20] MEDS: CARBIDOPA-LEVODOPA 25-100 MG 1 EACH TAB PO SCH ×3 (06:11→21:43)
[2021-10-20] MEDS: PANTOPRAZOLE 40 MG TABLET PO SCH ×2 (06:11→21:43)
[2021-10-20 06:48] LABS: Anisocytosis Slight; Basophils % (A) 0 %; Eosinophils # (A) 0.1 k/uL (0-0.7); Eosinophils % (A) 1 %; HCT 34.8 % (34.0-46.0); HGB 10.3 gm/dL (11.4-16.0); Hypochromasia Marked; Lymphocytes # (A) 0.9 k/uL (1.0-4.8); Lymphocytes % (A) 7 %; MCH 23.3 pg (25.0-35.0); MCHC 29.5 g/dL (31.0-37.0); MCV 78.9 fL (80.0-100.0); Microcytosis Slight; Monocytes # (A) 0.6 k/uL (0-1.0); Monocytes % (A) 5 %; Neutrophils # (A) 10.2 k/uL (1.3-7.7); Neutrophils % (A) 85 %; Platelet Count 400 k/uL (150-450); RDW 17.8 % (11.5-15.5)
[2021-10-20 06:55] LABS: African American GFR (CKD) 62 (>60 ml/min/1.73 sqM); Anion Gap 9 mmol/L; Blood Urea Nitrogen 15 mg/dL (7-17); Calcium 8.6 mg/dL (8.4-10.2); Carbon Dioxide 21 mmol/L (22-30); Chloride 114 mmol/L (98-107); Glucose 180 mg/dL (74-99); Non-African American GFR(CKD) 54 (>60 ml/min/1.73 sqM); Potassium 3.3 mmol/L (3.5-5.1); Sodium 144 mmol/L (137-145)
[2021-10-20] MEDS: ZINC SULFATE 220 MG CAP PO SCH (09:15)
[2021-10-20] MEDS: ASPIRIN 81 MG PO SCH (09:16)
[2021-10-20] MEDS: HEPARIN SODIUM,PORCINE/PF 5,000 UNIT/0.5 ML SYRINGE SQ SCH ×2 (09:16→21:48)
[2021-10-20] MEDS: CHOLECALCIFEROL 25 MCG (1000 IU) TABLET PO SCH (09:16)
[2021-10-20] MEDS: SOTALOL 80 MG TAB PO SCH ×2 (09:17→21:42)
[2021-10-20] MEDS: BRIMONIDINE TARTRATE 0.2% DROPS 5 ML BTL BOTH EYES SCH ×2 (09:17→21:47)
[2021-10-20] MEDS: LINAGLIPTIN 5 MG TABLET PO SCH (09:17)
[2021-10-20] MEDS ORDERED: Potassium Replacement Protocol 1 EACH MISC MISCELLANE PRN (10:45)
[2021-10-20] MEDS: POTASSIUM CHLORIDE ER 20 MEQ TAB.ER PO SCH (12:51)
[2021-10-20] MEDS ORDERED: Magnesium Replacement Protocol 1 EACH MISC MISCELLANE PRN (12:53)
[2021-10-20] MEDS: MAGNESIUM SULFATE-D5W PMX 1 GM in DEXTROSE/WATER 1 100ML.BAG IVPB SCH ×2 (13:02→14:01)
[2021-10-20] MEDS: ACETAMINOPHEN TAB 325 MG TAB PO PRN (14:00)
--- NOTE | 2021-10-20 21:31 | P.PN ---
Subjective Progress Note Date: 10/20/21 71 year old female who was admitted with a fall and change in mental status and is being closely monitored. Patient also had acute urinary infection and maintained on IV antibiotics and will continue. Patient has her 2 sons at the bedside and questions and concerns were answered to the best of our ability. Social work also following and awaiting accepting facilities in the [place] and surrounding areas for ECF. Patient denies any chest pain or shortness of breath. Afebrile. Encouraged oral intake. Objective - Vital Signs Vital signs: Vital Signs Temp 97.9 F 10/20/21 12:10 Pulse 75 10/20/21 12:10 Resp 18 10/20/21 12:10 BP 156/76 10/20/21 12:10 Pulse Ox 94 L 10/20/21 12:10 Intake & Output 10/19/21 10/20/21 10/20/21 18:59 06:59 18:59 Intake Total 900 Balance 900 Intake: Intake, IV Titration 900 Amount Sodium Chloride 0.9% 1, 900 000 ml @ 75 mls/hr IV . [id number] [facility] Rx#:[id number] Other: Voiding Method Diaper Diaper Diaper Incontinent Incontinent Incontinent # Voids 2 4 1 # Bowel Movements 1 - Exam GENERAL: The patient is alert and oriented x 1, thin built, cachetic, ill appearing HEENT: Pupils are round and equally reacting to light. EOMI. does have scleral icterus. No conjunctival pallor. Normocephalic, atraumatic. No pharyngeal erythema. No thyromegaly. CARDIOVASCULAR: S1 and S2 muffled PULMONARY: diminished breath sounds bilaterally with some scattered rhonchi noted. ABDOMEN: soft. non-tender. Non-distended, normoactive bowel sounds. No palpable organomegaly. MUSCULOSKELETAL: No joint swelling or deformity. EXTREMITIES: No cyanosis, clubbing, or pedal edema. NEUROLOGICAL: tremens noted on exam. Patient awake on exam although fatigues easily. Confused. diffusely weak SKIN: No rashes. - Labs CBC & Chem 7: 10/20/21 06:27 10/20/21 06:27 Labs: Abnormal Lab Results - Last 24 Hours (Table) 10/20/21 10/20/21 10/20/21 Range/Units 05:27 06:27 06:27 WBC 12.0 H (3.8-10.6) k/uL Hgb 10.3 L (11.4-16.0) gm/dL MCV 78.9 L (80.0-100.0) fL MCH 23.3 L (25.0-35.0) pg MCHC 29.5 L (31.0-37.0) g/dL RDW 17.8 H (11.5-15.5) % Neutrophils # 10.2 H (1.3-7.7) k/uL Lymphocytes # 0.9 L (1.0-4.8) k/uL Potassium 3.3 L (3.5-5.1) mmol/L Chloride 114 H (98-107) mmol/L Carbon Dioxide 21 L (22-30) mmol/L Glucose 180 H (74-99) mg/dL Magnesium 1.5 L (1.6-2.3) mg/dL Microbiology - Last 24 Hours (Table) 10/15/21 16:25 Blood Culture - Preliminary Blood No Growth after 96 hours 10/15/21 16:25 Blood Culture - Preliminary Blood No Growth after 96 hours Assessment and Plan Assessment: Acute urinary tract infection, present on admission Fall and weakness Dementia Atrial fibrillation History of congestive heart failure Full code Plan: Recommend to continue with IV ceftriaxone for urinary tract infection. Cultures and blood cultures have been negative. Patient has been maintained on gentle IV hydration and ordered chest xray which shows some possible CHF and will give a dose of lasix and repeat am labs as patient was also having some low grade temps. Patient continues to be confused and is lethargic. social work following for ECF and awaiting accepting facility. Most likely will return to [facility] Friday at the earliest and work on a facility that is closer to family. They are from the [facility] and would like somewhere around there if possible. Will continue to monitor closely and encouraged oral intake. Due to multiple complex medical issues, prognosis is guarded.
[2021-10-20] MEDS: QUEtiapine 25 MG TAB PO SCH (21:42)
[2021-10-20] MEDS: ESCITALOPRAM 5 MG TAB PO SCH (21:43)
[2021-10-20] MEDS: ATORVASTATIN 20 MG TAB PO SCH (21:43)
[2021-10-20] MEDS: LATANOPROST 0.005% OPHTH DROPS 2.5 ML BTL BOTH EYES SCH (21:47)
[2021-10-21] MEDS: ALPRAZolam 0.25 MG TAB PO SCH ×3 (04:17→10:52)
[2021-10-21] MEDS: CARBIDOPA-LEVODOPA 25-100 MG 1 EACH TAB PO SCH ×3 (06:13→22:16)
[2021-10-21] MEDS: PANTOPRAZOLE 40 MG TABLET PO SCH ×2 (06:14→22:17)
[2021-10-21] MEDS ORDERED: SODIUM CHLORIDE 0.9% 250 ML IV ONE (06:30)
[2021-10-21 07:56] LABS: African American GFR (CKD) 63 (>60 ml/min/1.73 sqM); Anion Gap 6 mmol/L; Blood Urea Nitrogen 17 mg/dL (7-17); Calcium 8.2 mg/dL (8.4-10.2); Carbon Dioxide 23 mmol/L (22-30); Chloride 116 mmol/L (98-107); Glucose 161 mg/dL (74-99); Magnesium 1.9 mg/dL (1.6-2.3); Non-African American GFR(CKD) 55 (>60 ml/min/1.73 sqM); Potassium 3.6 mmol/L (3.5-5.1); Sodium 145 mmol/L (137-145)
[2021-10-21] MEDS: ASPIRIN 81 MG PO SCH (08:05)
[2021-10-21] MEDS: CHOLECALCIFEROL 25 MCG (1000 IU) TABLET PO SCH (08:05)
[2021-10-21] MEDS: ZINC SULFATE 220 MG CAP PO SCH (08:05)
[2021-10-21] MEDS: HEPARIN SODIUM,PORCINE/PF 5,000 UNIT/0.5 ML SYRINGE SQ SCH ×2 (08:05→22:22)
[2021-10-21] MEDS: ACETAMINOPHEN TAB 325 MG TAB PO PRN (08:06)
[2021-10-21] MEDS: BRIMONIDINE TARTRATE 0.2% DROPS 5 ML BTL BOTH EYES SCH ×2 (08:07→22:21)
[2021-10-21] MEDS: SODIUM CHLORIDE 0.9% 1,000 ML IV SCH (08:07)
[2021-10-21] MEDS: LINAGLIPTIN 5 MG TABLET PO SCH (08:08)
[2021-10-21] MEDS: SOTALOL 80 MG TAB PO SCH ×2 (08:08→22:17)
[2021-10-21] MEDS ORDERED: POTASSIUM CHLORIDE ER 20 MEQ TAB.ER PO SCH (10:00)
--- NOTE | 2021-10-21 14:04 | P.PN ---
Subjective Progress Note Date: 10/21/21 Principal diagnosis: Acute UTI Fall and weakness/debility Advanced dementia 71 year old female who was admitted with a fall and change in mental status and is being closely monitored. Patient also had acute urinary infection and maintained on IV antibiotics and will continue. Patient has her 2 sons at the bedside and questions and concerns were answered to the best of our ability. Social work also following and awaiting accepting facilities in the [place] and surrounding areas for ECF. Patient denies any chest pain or shortness of breath. Afebrile. Encouraged oral intake. 10/21/2021 Patient is seen and evaluated in room at bedside and discussed with nursing staff; no specific concerns Vital signs are reviewed and reveal temperature of 98.1, pulse 70,/16 and blood pressure 124/76 with O2 saturation 100% on 2 L Blood work completed 10/20/2021 reveals stable CBC of 12.0, hemoglobin 10.3 and platelet count of 400,; chemical profile from today reveal sodium of 145, potassium 3.6, BUN/creatinine of 17/1.02; magnesium of 1.90 Patient will continue another 24 hours of antibiotic therapy Plan is for return to [facility] Friday until a facility can accommodate that is closer to [place] by family. Social work following. Objective - Vital Signs Vital signs: Vital Signs Temp 98.1 F 10/21/21 05:00 Pulse 70 10/21/21 05:00 Resp 16 10/21/21 05:00 BP 125/76 10/21/21 05:00 Pulse Ox 100 10/21/21 05:00 Intake & Output 10/20/21 10/21/21 10/21/21 18:59 06:59 18:59 Intake Total 590 Balance 590 Intake: Oral 590 Other: Voiding Method Diaper Diaper Incontinent Incontinent # Voids 3 2 # Bowel Movements 1 - Exam GENERAL: The patient is alert and oriented x 1, thin built, cachetic, ill appearing HEENT: Pupils are round and equally reacting to light. EOMI. does have scleral icterus. No conjunctival pallor. Normocephalic, atraumatic. No pharyngeal erythe ma. No thyromegaly. CARDIOVASCULAR: S1 and S2 muffled PULMONARY: diminished breath sounds bilaterally with some scattered rhonchi noted. ABDOMEN: soft. non-tender. Non-distended, normoactive bowel sounds. No palpable organomegaly. MUSCULOSKELETAL: No joint swelling or deformity. EXTREMITIES: No cyanosis, clubbing, or pedal edema. NEUROLOGICAL: tremens noted on exam. Patient awake on exam although fatigues easily. Confused. diffusely weak SKIN: No rashes. - Labs CBC & Chem 7: 10/20/21 06:27 10/21/21 07:16 Labs: Abnormal Lab Results - Last 24 Hours (Table) 10/20/21 10/21/21 Range/Units 05:27 07:16 Chloride 116 H (98-107) mmol/L Glucose 161 H (74-99) mg/dL Calcium 8.2 L (8.4-10.2) mg/dL Magnesium 1.5 L (1.6-2.3) mg/dL Microbiology - Last 24 Hours (Table) 10/15/21 16:25 Blood Culture - Preliminary Blood No Growth after 120 hours 10/15/21 16:25 Blood Culture - Preliminary Blood No Growth after 120 hours Assessment and Plan Assessment: Acute urinary tract infection, present on admission Fall and weakness Dementia Atrial fibrillation History of congestive heart failure Full code Plan: Recommend to continue with IV ceftriaxone for urinary tract infection. Cultures and blood cultures have been negative. Patient has been maintained on gentle IV hydration and ordered chest xray which shows some possible CHF and will give a dose of lasix and repeat am labs as patient was also having some low grade temps. Patient continues to be confused and is lethargic. social work following for ECF and awaiting accepting facility. Most likely will return to [facility] Friday at the earliest and work on a facility that is closer to family. They are from the [facility] and would like somewhere around there if possible. Will continue to monitor closely and encouraged oral intake. Due to multiple complex medical issues, prognosis is guarded.
[2021-10-21] MEDS ORDERED: ALPRAZolam 0.25 MG TAB PO PRN ×2 (18:57→18:58)
[2021-10-21] MEDS: QUEtiapine 25 MG TAB PO SCH (22:17)
[2021-10-21] MEDS: ESCITALOPRAM 5 MG TAB PO SCH (22:19)
[2021-10-21] MEDS: ATORVASTATIN 20 MG TAB PO SCH (22:19)
[2021-10-21] MEDS: LATANOPROST 0.005% OPHTH DROPS 2.5 ML BTL BOTH EYES SCH (22:22)
[2021-10-22] MEDS: CARBIDOPA-LEVODOPA 25-100 MG 1 EACH TAB PO SCH ×3 (08:09→20:42)
[2021-10-22] MEDS: CHOLECALCIFEROL 25 MCG (1000 IU) TABLET PO SCH (08:09)
[2021-10-22] MEDS: ACETAMINOPHEN TAB 325 MG TAB PO PRN (08:09)
[2021-10-22] MEDS: ASPIRIN 81 MG PO SCH (08:09)
[2021-10-22] MEDS: ZINC SULFATE 220 MG CAP PO SCH (08:09)
[2021-10-22] MEDS: PANTOPRAZOLE 40 MG TABLET PO SCH ×2 (08:09→20:42)
[2021-10-22] MEDS: HEPARIN SODIUM,PORCINE/PF 5,000 UNIT/0.5 ML SYRINGE SQ SCH ×2 (08:09→20:43)
[2021-10-22] MEDS: BRIMONIDINE TARTRATE 0.2% DROPS 5 ML BTL BOTH EYES SCH ×2 (08:10→20:43)
[2021-10-22] MEDS: SODIUM CHLORIDE 0.9% 1,000 ML IV SCH ×2 (08:10→08:11)
[2021-10-22] MEDS: SOTALOL 80 MG TAB PO SCH ×2 (08:12→20:42)
[2021-10-22] MEDS: LINAGLIPTIN 5 MG TABLET PO SCH (08:12)
--- NOTE | 2021-10-22 12:49 | P.DS ---
Providers Date of admission: 10/15/21 20:09 Expected date of discharge: 10/22/21 Attending physician: Andrei Rutherford Primary care physician: Ferdinand Oseguera Hospital Course: Final diagnosis Acute urinary tract infection, present on admission Fall and weakness Dementia Parkinson's history Recent Covid 19 infection Atrial fibrillation History of congestive heart failure Full code Discharge disposition Patient is being discharged in a stable condition with guarded prognosis to F nursing facility. Patient will follow-up with Dr. Oseguera upon discharge. Patient will continue with a short course of oral antibiotics in the form of Ceftin 500 mg twice daily for the next 3 days and then may discontinue. Recommend repeat labs of CBC, BMP in 2-3 days. Total time taken is greater than 35 minutes. Hospital course This is a 71-year-old female who was recently admitted with falls and change in mental status and was being closely monitored. Patient was found having acute urinary tract infection, present on admission and maintained on IV ceftriaxone. Urine and blood cultures have been negative and patient will continue on oral Ceftin 500 mg twice daily for the next 3 days and then may discontinue. Patient continues to have confusion and weakness and needs encouragement on oral intake. Per nursing staff patient is eating somewhat better today. Patient will be returning to [facility] on the [place] today with guarded prognosis. Currently no reports of chest pain, shortness of breath, or palpitations. Patient is afebrile. No reports of nausea or vomiting and patient is tolerating diet. Patient and family will further discuss moving patient to another F closer to [place] where family is in the outpatient setting. Guarded prognosis. On exam vital signs are stable. Cardio S1, S2 are muffled. Respiratory shows diminished breath sounds at the bases with no wheezing or rhonchi noted. Abdomen is soft and nontender. Nervous system shows mild diffuse weakness. Please refer to medication reconciliation sheet for a list of medications. The impression and plan of care has been dictated by Celeste Szymanski, nurse practitioner as directed. MD Jose R I have performed a history and examination and MDM of this patient, discussed the same with the dictator, and agree with the dictator's assessment and plan as written ,documented as a scribe. Based on total visit time, I have performed more than 50% of the visit. Any additional findings or plans will be noted. Patient Condition at Discharge: Stable Plan - Discharge Summary Discharge Rx Participant: No New Discharge Prescriptions: New Heparin Sodium,Porcine [Heparin Sodium] 5,000 unit SQ Q12HR 30 Days #60 each Cefuroxime Axetil [Ceftin] 500 mg PO BID 3 Days #6 tab Folic Acid 1 mg PO DAILY #30 tablet Multivitamins, Thera [Multivitamin] 1 tab PO DAILY #30 tablet Thiamine [Vitamin B-1] 100 mg PO DAILY #30 tablet Continue Acetaminophen [Tylenol] 650 mg PO Q4H PRN PRN Reason: Pain Brimonidine Tartrate [Alphagan P 0.2% Ophth Soln] 1 drop BOTH EYES BID@0900,2100 Lactose-Reduced Food [Ensure Plus] 1 can PO BID@0900,2100 Zinc 50 mg PO DAILY@0900 QUEtiapine [SEROquel] 25 mg PO HS@2100 Aspirin EC [Ecotrin Low Dose] 81 mg PO DAILY@0900 Ascorbic Acid [Vitamin C] 500 mg PO DAILY@0900 Nitroglycerin Sl Tabs [Nitrostat] 0.4 mg SL Q5M PRN PRN Reason: Chest Pain Carbidopa-Levodopa 25-100 mg [Sinemet 25-100 mg] 1 tab PO TID@0600,1400,2200 Sotalol [Betapace] 80 mg PO BID@0900,2100 Pantoprazole Sodium [Protonix] 40 mg PO BID@0600,2100 Sacubitril/Valsartan [Entresto 24 mg-26 mg Tablet] 1 tab PO BID@0900,2100 PRN PRN Reason: HOLD IF SBP IS LESS THAN 110 Linagliptin [Tradjenta] 5 mg PO DAILY@0900 Cholecalciferol [Vitamin D3 (25 Mcg = 1000 Iu)] 50 mcg PO DAILY@0900 Escitalopram [Lexapro] 5 mg PO HS@2100 Latanoprost/Pf [Latanoprost 0.005% Eye Drop] 1 drop BOTH EYES HS@2100 Atorvastatin Calcium [Lipitor] 20 mg PO HS@2100 ALPRAZolam [Xanax] 0.25 mg PO TID@0900,1300,2100 #6 tab Discontinued ALPRAZolam [Xanax] 0.25 mg PO BID PRN PRN Reason: Anxiety Discharge Medication List Acetaminophen [Tylenol] 650 mg PO Q4H PRN 10/15/21 [History] Ascorbic Acid [Vitamin C] 500 mg PO DAILY@0910/15/21 [History] Aspirin EC [Ecotrin Low Dose] 81 mg PO DAILY@89910/15/21 [History] Atorvastatin Calcium [Lipitor] 20 mg PO HS@209910/15/21 [History] Brimonidine Tartrate [Alphagan P 0.2% Ophth Soln] 1 drop BOTH EYES BID@0900,209910/15/21 [History] Carbidopa-Levodopa 25-100 mg [Sinemet 25-100 mg] 1 tab PO TID@0600,1400,2200 10/15/21 [History] Cholecalciferol [Vitamin D3 (25 Mcg = 1000 Iu)] 50 mcg PO DAILY@89910/15/21 [History] Escitalopram [Lexapro] 5 mg PO HS@209910/15/21 [History] Lactose-Reduced Food [Ensure Plus] 1 can PO BID@899,209910/15/21 [History] Latanoprost/Pf [Latanoprost 0.005% Eye Drop] 1 drop BOTH EYES HS@209910/15/21 [History] Linagliptin [Tradjenta] 5 mg PO DAILY@89910/15/21 [History] Nitroglycerin Sl Tabs [Nitrostat] 0.4 mg SL Q5M PRN 10/15/21 [History] Pantoprazole Sodium [Protonix] 40 mg PO BID@0600,209910/15/21 [History] QUEtiapine [SEROquel] 25 mg PO HS@209910/15/21 [History] Sacubitril/Valsartan [Entresto 24 mg-26 mg Tablet] 1 tab PO BID@00,2099 PRN 10/15/21 [History] Sotalol [Betapace] 80 mg PO BID@00,209910/15/21 [History] Zinc 50 mg PO DAILY@89910/15/21 [History] ALPRAZolam [Xanax] 0.25 mg PO TID@0900,1300,2100 #6 tab 10/22/21 [Rx] Cefuroxime Axetil [Ceftin] 500 mg PO BID 3 Days #6 tab 10/22/21 [Rx] Folic Acid 1 mg PO DAILY #30 tablet 10/22/21 [Rx] Heparin Sodium,Porcine [Heparin Sodium] 5,000 unit SQ Q12HR 30 Days #60 each 10/22/21 [Rx] Multivitamins, Thera [Multivitamin] 1 tab PO DAILY #30 tablet 10/22/21 [Rx] Thiamine [Vitamin B-1] 100 mg PO DAILY #30 tablet 10/22/21 [Rx] Follow up Appointment(s)/Referral(s): Nonstaff,Physician [REFERRING] - 1-2 days Ambulatory/Diagnostic Orders: Complete Blood Count w/diff [LAB.AMB] Time Frame: 2 Days, Location: [facility] Ricarda santiago Patient Instructions/Handouts: Heart Failure (DC), Urinary Tract Infection in Women (DC), Fall Prevention (DC) Activity/Diet/Wound Care/Special Instructions: Patient is going to ECF Activity as tolerated Continue taking medications as prescribed Follow-up primary care provider on discharge Patient to continue with heparin subcu every 12 hours Continue with dysphasia 3 chopped heart healthy diet and aspiration precautions and assistance with meals, head of the bed elevated 30-45 at all times Continue taking antibiotics for the next 3 days and then may discontinue Repeat labs of CBC and BMP in 2-3 days Discharge Disposition: TRANSFER TO SNF/ECF
--- NOTE | 2021-10-22 13:29 | P.PN ---
Subjective Progress Note Date: 10/22/21 10/18/2021 This is a 71 year old female who was admitted with a fall and change in mental status and is being closely monitored. Patient also had acute urinary infection and maintained on IV antibiotics and will continue. Patient has her 2 sons at the bedside and questions and concerns were answered to the best of our ability. Social work also following and awaiting accepting facilities in the [place] and surrounding areas for ECF. Patient denies any chest pain or shortness of breath. Afebrile. Encouraged oral intake. 10/19/2021 Patient is seen today and continues to be confused and lethargic. Patient continues on IV ceftriaxone and will continue for UTI. cultures have been negative however having some low grade temps. Will repeat am labs. Chest xray ordered as patient has been maintained on normal saline. Plan is for return to [facility] Friday until a facility can accommodate that is closer to [place] by family. Social work following. 10/22/2021 Patient is seen and evaluated today continues to be confused although appears more awake today. Patient was scheduled to be discharged to [facility] and outpatient planning for ECF near [place] although per social work nursing facility near [place] can accommodate the patient and will have about available on 10/23/2021. Per nursing staff patient is eating more today and continues to need encouragement with meals. Patient denies any chest pain or shortness of breath. Patient is afebrile. Review of systems: Unable to obtain as patient is confused All medications have been reviewed Active Medications Acetaminophen (Acetaminophen Tab 325 Mg Tab) 650 mg PO Q4H PRN PRN Reason: Mild Pain Last Admin: 10/22/21 08:09 Dose: 650 mg Documented by: Alprazolam (Alprazolam 0.25 Mg Tab) 0.25 mg PO Q8HR PRN PRN Reason: Anxiety Aspirin (Aspirin 81 Mg) 81 mg PO DAILY@0900 [facility] Last Admin: 10/22/21 08:09 Dose: 81 mg Documented by: Atorvastatin Calcium (Atorvastatin 20 Mg Tab) 20 mg PO HS@2099 [facility] Last Admin: 10/21/21 22:19 Dose: 20 mg Documented by: Brimonidine Tartrate (Brimonidine Tartrate 0.2% Drops 5 Ml Btl) 1 drops BOTH EYES BID@0900,2099 [facility] Last Admin: 10/22/21 08:10 Dose: 1 drops Documented by: Carbidopa/Levodopa (Carbidopa-Levodopa 25-100 Mg 1 Each Tab) 1 each PO TID@0600,1400,2200 [facility] Last Admin: 10/22/21 08:09 Dose: 1 each Documented by: Cholecalciferol (Cholecalciferol 25 Mcg (1000 Iu) Tablet) 50 mcg PO DAILY@0900 [facility] Last Admin: 10/22/21 08:09 Dose: 50 mcg Documented by: Escitalopram Oxalate (Escitalopram 5 Mg Tab) 5 mg PO HS@2100 [facility] Last Admin: 10/21/21 22:19 Dose: 5 mg Documented by: Heparin Sodium (Porcine) (Heparin Sodium,Porcine/Pf 5,000 Unit/0.5 Ml Syringe) 5,000 unit SQ Q12HR [facility] Last Admin: 10/22/21 08:09 Dose: 5,000 unit Documented by: Ceftriaxone Sodium 1 gm/ (Sodium Chloride) 50 mls @ 100 mls/hr IVPB Q24HR [facility] Last Admin: 10/22/21 08:11 Dose: 100 mls/hr Documented by: Sodium Chloride (Saline 0.9%) 1,000 mls @ 75 mls/hr IV .[id number] [facility] Last Admin: 10/22/21 08:11 Dose: 75 mls/hr Documented by: Latanoprost (Latanoprost 0.005% Ophth Drops 2.5 Ml Btl) 1 drops BOTH EYES HS@2100 [facility] Last Admin: 10/21/21 22:22 Dose: 1 drops Documented by: Linagliptin (Linagliptin 5 Mg Tablet) 5 mg PO DAILY@0900 [facility] Last Admin: 10/22/21 08:12 Dose: 5 mg Documented by: Miscellaneous Information (Potassium Replacement Protocol 1 Each Misc) 1 each MISCELLANE DAILY PRN; Protocol PRN Reason: Per Protocol Miscellaneous Information (Magnesium Replacement Protocol 1 Each Misc) 1 each MISCELLANE DAILY PRN; Protocol PRN Reason: Per Protocol Morphine Sulfate (Morphine Sulfate 4 Mg/Ml Syringe) 4 mg IV Q4HR PRN PRN Reason: Severe Pain Naloxone HCl (Naloxone 0.4 Mg/Ml 1 Ml Vial) 0.2 mg IV Q2M PRN PRN Reason: Opioid Reversal Pantoprazole Sodium (Pantoprazole 40 Mg Tablet) 40 mg PO BID@0600,2100 [facility] Last Admin: 10/22/21 08:09 Dose: 40 mg Documented by: Quetiapine Fumarate (Quetiapine 25 Mg Tab) 25 mg PO HS@2099 [facility] Last Admin: 10/21/21 22:17 Dose: 25 mg Documented by: Sacubitril/Valsartan (Sacubitril/Valsartan 24 Mg-26 Mg Tablet) 1 each PO BID@899,2099 PRN PRN Reason: HOLD IF SBP IS LESS THAN 110 Sotalol HCl (Sotalol 80 Mg Tab) 80 mg PO BID@899,2099 [facility] Last Admin: 10/22/21 08:12 Dose: 80 mg Documented by: Zinc Sulfate (Zinc Sulfate 220 Mg Cap) 220 mg PO DAILY@899 [facility] Last Admin: 10/22/21 08:09 Dose: 220 mg Documented by: PHYSICAL EXAMINATION: GENERAL: The patient is alert and oriented x 1, thin built, cachetic HEENT: Pupils are round and equally reacting to light. EOMI. does have scleral icterus. No conjunctival pallor. Normocephalic, atraumatic. No pharyngeal erythema. No thyromegaly. CARDIOVASCULAR: S1 and S2 muffled PULMONARY: diminished breath sounds bilaterally with some scattered rhonchi noted. ABDOMEN: soft. non-tender. Non-distended, normoactive bowel sounds. No palpable organomegaly. MUSCULOSKELETAL: No joint swelling or deformity. EXTREMITIES: No cyanosis, clubbing, or pedal edema. NEUROLOGICAL: tremens noted on exam. Patient awake on exam. Confused. diffusely weak SKIN: No rashes. Assessment: Acute urinary tract infection, present on admission Fall and weakness Dementia Atrial fibrillation History of congestive heart failure Full code Plan: Recommend to continue with IV ceftriaxone for urinary tract infection. Cultures and blood cultures have been negative. Patient continues to be confused although appears more awake today. Per nursing staff patient is eating slightly better and needs encouragement to continue with meals. Social work following for [facility] and [place] [facility] can accommodate the patient with the bed tomorrow on 10/23/2021. Will continue to monitor closely and encouraged oral intake. Due to multiple complex medical issues, prognosis is guarded. Anticipate discharge in 24 hours. The impression and plan of care has been dictated by Celeste Szymanski, nurse practitioner as directed. MD Jose R I have performed a history and examination and MDM of this patient, discussed the same with the dictator, and agree with the dictator's assessment and plan as written ,documented as a scribe. Based on total visit time, I have performed more than 50% of the visit. Any additional findings or plans will be noted. Objective - Vital Signs Vital signs: Vital Signs Temp 98.8 F 10/22/21 11:42 Pulse 66 10/22/21 11:42 Resp 18 10/22/21 11:42 BP 100/62 10/22/21 11:42 Pulse Ox 97 10/22/21 11:42 Intake & Output 10/21/21 10/22/21 10/22/21 18:59 06:59 18:59 Intake Total 400 900 Balance 400 900 Weight 58 kg Intake: Intake, IV Titration 900 Amount Sodium Chloride 0.9% 1, 900 000 ml @ 75 mls/hr IV . [id number] [facility] Rx#:[id number] Oral 400 Other: Voiding Method Diaper Diaper Diaper Incontinent Incontinent Incontinent # Voids 4 2 # Bowel Movements 1 - Labs CBC & Chem 7: 10/20/21 06:27 10/21/21 07:16 Labs: Microbiology - Last 24 Hours (Table) 10/15/21 16:25 Blood Culture - Final Blood No Growth after 144 hours 10/15/21 16:25 Blood Culture - Final Blood No Growth after 144 hours
[2021-10-22 15:06] VITALS: BMI 21.9
[2021-10-22] MEDS: ESCITALOPRAM 5 MG TAB PO SCH (20:42)
[2021-10-22] MEDS: QUEtiapine 25 MG TAB PO SCH (20:42)
[2021-10-22] MEDS: ATORVASTATIN 20 MG TAB PO SCH (20:42)
[2021-10-22] MEDS: LATANOPROST 0.005% OPHTH DROPS 2.5 ML BTL BOTH EYES SCH (20:43)
[2021-10-23] MEDS: CARBIDOPA-LEVODOPA 25-100 MG 1 EACH TAB PO SCH (05:13)
[2021-10-23] MEDS: PANTOPRAZOLE 40 MG TABLET PO SCH (05:13)
[2021-10-23] MEDS: SODIUM CHLORIDE 0.9% 1,000 ML IV SCH (05:13)
[2021-10-23 08:11] VITALS: RESP 16
--- NOTE | 2021-10-23 10:04 | P.DS ---
Providers Date of admission: 10/15/21 20:09 Expected date of discharge: 10/23/21 Attending physician: Andrei Rutherford Primary care physician: Ferdinand Oseguera Hospital Course: Final diagnosis Acute urinary tract infection, present on admission Fall and weakness Dementia Parkinson's history Recent Covid 19 infection Atrial fibrillation History of congestive heart failure Full code Discharge disposition Patient is being discharged in a stable condition with guarded prognosis to [facility]. Patient will follow-up with Dr. Oseguera upon discharge. Patient will continue with a short course of oral antibiotics in the form of Ce ftin 500 mg twice daily for the next 3 days and then may discontinue. Recommend repeat labs of CBC, BMP in 2-3 days. Total time taken is greater than 35 minutes. Hospital course This is a 71-year-old female who was recently admitted with falls and change in mental status and was being closely monitored. Patient was found having acute urinary tract infection, present on admission and maintained on IV ceftriaxone. Urine and blood cultures have been negative and patient will continue on oral Ceftin 500 mg twice daily for the next 3 days and then may discontinue. Patient continues to have confusion and weakness and needs encouragement on oral intake. Per nursing staff patient is eating somewhat better today. Patient will be is charged to [facility] nursing facility today with guarded prognosis. Currently no reports of chest pain, shortness of breath, or palpitations. Patient is afebrile. No reports of nausea or vomiting and patient is tolerating diet. Guarded prognosis. On exam vital signs are stable. Cardio S1, S2 are muffled. Respiratory shows diminished breath sounds at the bases with no wheezing or rhonchi noted. Abdomen is soft and nontender. Nervous system shows mild diffuse weakness. Please refer to medication reconciliation sheet for a list of medications. The impression and plan of care has been dictated by Celeste Szymanski, nurse practitioner as directed. MD Jose R I have performed a history and examination and MDM of this patient, discussed the same with the dictator, and agree with the dictator's assessment and plan as written ,documented as a scribe. Based on total visit time, I have performed more than 50% of the visit. Any additional findings or plans will be noted. Patient Condition at Discharge: Stable Plan - Discharge Summary Discharge Rx Participant: No New Discharge Prescriptions: New Heparin Sodium,Porcine [Heparin Sodium] 5,000 unit SQ Q12HR 30 Days #60 each Cefuroxime Axetil [Ceftin] 500 mg PO BID 3 Days #6 tab Folic Acid 1 mg PO DAILY #30 tablet Multivitamins, Thera [Multivitamin] 1 tab PO DAILY #30 tablet Thiamine [Vitamin B-1] 100 mg PO DAILY #30 tablet Continue Acetaminophen [Tylenol] 650 mg PO Q4H PRN PRN Reason: Pain Brimonidine Tartrate [Alphagan P 0.2% Ophth Soln] 1 drop BOTH EYES BID@0900,2100 Lactose-Reduced Food [Ensure Plus] 1 can PO BID@0900,2100 Zinc 50 mg PO DAILY@0900 QUEtiapine [SEROquel] 25 mg PO HS@2100 Aspirin EC [Ecotrin Low Dose] 81 mg PO DAILY@0900 Ascorbic Acid [Vitamin C] 500 mg PO DAILY@0900 Nitroglycerin Sl Tabs [Nitrostat] 0.4 mg SL Q5M PRN PRN Reason: Chest Pain Carbidopa-Levodopa 25-100 mg [Sinemet 25-100 mg] 1 tab PO TID@0600,1400,2200 Sotalol [Betapace] 80 mg PO BID@0900,2100 Pantoprazole Sodium [Protonix] 40 mg PO BID@0600,2100 Sacubitril/Valsartan [Entresto 24 mg-26 mg Tablet] 1 tab PO BID@0900,2100 PRN PRN Reason: HOLD IF SBP IS LESS THAN 110 Linagliptin [Tradjenta] 5 mg PO DAILY@0900 Cholecalciferol [Vitamin D3 (25 Mcg = 1000 Iu)] 50 mcg PO DAILY@0900 Escitalopram [Lexapro] 5 mg PO HS@2100 Latanoprost/Pf [Latanoprost 0.005% Eye Drop] 1 drop BOTH EYES HS@2100 Atorvastatin Calcium [Lipitor] 20 mg PO HS@2100 ALPRAZolam [Xanax] 0.25 mg PO TID@0900,1300,2100 #6 tab Discontinued ALPRAZolam [Xanax] 0.25 mg PO BID PRN PRN Reason: Anxiety Discharge Medication List Acetaminophen [Tylenol] 650 mg PO Q4H PRN 10/15/21 [History] Ascorbic Acid [Vitamin C] 500 mg PO DAILY@0900 10/15/21 [History] Aspirin EC [Ecotrin Low Dose] 81 mg PO DAILY@89910/15/21 [History] Atorvastatin Calcium [Lipitor] 20 mg PO HS@209910/15/21 [History] Brimonidine Tartrate [Alphagan P 0.2% Ophth Soln] 1 drop BOTH EYES BID@0900,209910/15/21 [History] Carbidopa-Levodopa 25-100 mg [Sinemet 25-100 mg] 1 tab PO TID@0600,1400,2200 10/15/21 [History] Cholecalciferol [Vitamin D3 (25 Mcg = 1000 Iu)] 50 mcg PO DAILY@0910/15/21 [History] Escitalopram [Lexapro] 5 mg PO HS@209910/15/21 [History] Lactose-Reduced Food [Ensure Plus] 1 can PO BID@899,209910/15/21 [History] Latanoprost/Pf [Latanoprost 0.005% Eye Drop] 1 drop BOTH EYES HS@209910/15/21 [History] Linagliptin [Tradjenta] 5 mg PO DAILY@89910/15/21 [History] Nitroglycerin Sl Tabs [Nitrostat] 0.4 mg SL Q5M PRN 10/15/21 [History] Pantoprazole Sodium [Protonix] 40 mg PO BID@0600,209910/15/21 [History] QUEtiapine [SEROquel] 25 mg PO HS@209910/15/21 [History] Sacubitril/Valsartan [Entresto 24 mg-26 mg Tablet] 1 tab PO BID@899,2099 PRN 10/15/21 [History] Sotalol [Betapace] 80 mg PO BID@899,209910/15/21 [History] Zinc 50 mg PO DAILY@89910/15/21 [History] ALPRAZolam [Xanax] 0.25 mg PO TID@0900,1300,2100 #6 tab 10/22/21 [Rx] Cefuroxime Axetil [Ceftin] 500 mg PO BID 3 Days #6 tab 10/22/21 [Rx] Folic Acid 1 mg PO DAILY #30 tablet 10/22/21 [Rx] Heparin Sodium,Porcine [Heparin Sodium] 5,000 unit SQ Q12HR 30 Days #60 each 10/22/21 [Rx] Multivitamins, Thera [Multivitamin] 1 tab PO DAILY #30 tablet 10/22/21 [Rx] Thiamine [Vitamin B-1] 100 mg PO DAILY #30 tablet 10/22/21 [Rx] Follow up Appointment(s)/Referral(s): Nonstaff,Physician [REFERRING] - 1-2 days Ambulatory/Diagnostic Orders: Complete Blood Count w/diff [LAB.AMB] Time Frame: 2 Days, Location: None Selected Patient Instructions/Handouts: Heart Failure (DC), Urinary Tract Infection in Women (DC), Fall Prevention (DC) Activity/Diet/Wound Care/Special Instructions: TERESSA ERICKSON - [id number] [place] [address] - P: [phone] Patient is going to ECF Activity as tolerated Continue taking medications as prescribed Follow-up primary care provider on discharge Patient to continue with heparin subcu every 12 hours Continue with dysphasia 3 chopped heart healthy diet and aspiration precautions and assistance with meals, head of the bed elevated 30-45 at all times Continue taking antibiotics for the next 3 days and then may discontinue Repeat labs of CBC and BMP in 2-3 days Discharge Disposition: TRANSFER TO SNF/ECF
[2021-10-23] MEDS: ASPIRIN 81 MG PO SCH (11:05)
[2021-10-23] MEDS: BRIMONIDINE TARTRATE 0.2% DROPS 5 ML BTL BOTH EYES SCH (11:06)
[2021-10-23] MEDS: CHOLECALCIFEROL 25 MCG (1000 IU) TABLET PO SCH (11:07)
[2021-10-23] MEDS: SOTALOL 80 MG TAB PO SCH (11:07)
[2021-10-23] MEDS: LINAGLIPTIN 5 MG TABLET PO SCH (11:07)
[2021-10-23] MEDS: ZINC SULFATE 220 MG CAP PO SCH (11:07)
[2021-10-23] MEDS: HEPARIN SODIUM,PORCINE/PF 5,000 UNIT/0.5 ML SYRINGE SQ SCH (11:28)
[2021-10-23 12:01] VITALS: BP 143/86; PULSE 85; TEMP 97.8
== END 2021-10-23 14:28 ==
LOC: EC 15:32 → SUPCPDRO 15:32 → 5NMEDONC 20:09 → INTOOBSV 20:09 → 5NMEDONC 21:06 → UNDODISIN 10-23 14:28
PROVIDERS: ADMIT Hospitalist; ATTEND Hospitalist
DX: N39.0 Urinary tract infection, site not specified (principal); R29.6 Repeated falls; F02.80 Dementia in other diseases classified elsewhere, unspecified severity, without behavioral disturbance, psychotic disturbance, mood disturbance, and anxiety; G20 Parkinson's disease; I11.0 Hypertensive heart disease with heart failure; I50.9 Heart failure, unspecified; R45.1 Restlessness and agitation; M79.652 Pain in left thigh; M25.552 Pain in left hip; I48.91 Unspecified atrial fibrillation; E11.9 Type 2 diabetes mellitus without complications; R07.81 Pleurodynia; R74.8 Abnormal levels of other serum enzymes; Z20.822 Contact with and (suspected) exposure to COVID-19; W19.XXXA Unspecified fall, initial encounter; Y92.129 Unspecified place in nursing home as the place of occurrence of the external cause; Z79.899 Other long term (current) drug therapy; Z79.82 Long term (current) use of aspirin; Z79.84 Long term (current) use of oral hypoglycemic drugs; Z86.16 Personal history of COVID-19; Z71.3 Dietary counseling and surveillance
CPT/HCPCS: 96361 ×4; 96366 ×2; 96372 ×9; 96375 ×2; 96376; 96365; 96367; 99285; 36415; 94760; 93005; 97110; 97530 ×3; 97162; 97535; 97167; 80053 ×2; 80048 ×3; 82533; 82150; 82550; 83605; 83690; 83735 ×3; 84484; 85025 ×3; 85610; 85730; 81001; 87040; 87086; 87635; 72170; 73552; 71045 ×2; 72129; 72125; 72132; 70450; 71260; G0378 ×9; J2060; J1630; J1940; J0696 ×9; J2270; J3475 ×2; Q9967; J1644 ×8; 96374